=== PATIENT | male | born 1955 | race Caucasian/White ===

== ENCOUNTER 2020-01-25 15:16 | Inpatient (IN) | payer OTHER ==
[~2020-01-25 15:16] MED LIST: CIPR500T89 PO; GLIM2TAB PO; METF1000 PO; METO50TA2 PO; ONDA-1 PO; PERC7.5T12 PO; SERT-138 PO; TAMS0.4C PO; TRAZ50TA2 PO; [UNRECOGNIZED DRUG - CODE] PO
[2020-01-25 17:30] VITALS: BP 170/88
[2020-01-25] MEDS ORDERED: LISI40TA PO (17:53)
[2020-01-25] MEDS ORDERED: AMLO1TAB24 PO (17:53)
[2020-01-25] MEDS ORDERED: FURO20TA2 PO (17:53)
[2020-01-25] MEDS ORDERED: ATOR40TA75 PO (17:53)
[2020-01-25] MEDS ORDERED: METF10004 PO (17:53)
[2020-01-25] MEDS ORDERED: SPIR-10 PO (17:53)
[2020-01-25] MEDS ORDERED: ZYLO300T6 PO ×2 (17:53→18:17)
[2020-01-25] MEDS ORDERED: OMEP-221 PO (17:53)
[2020-01-25] MEDS ORDERED: AMLO1TAB25 PO (17:53)
[2020-01-25] MEDS ORDERED: SERT-138 PO (17:53)
[2020-01-25] MEDS ORDERED: ALLO10TA PO (17:55)
[2020-01-25] MEDS ORDERED: GLUCAGON INJ 1MG VIAL SC PRN (18:15)
[2020-01-25] MEDS ORDERED: DEXTROSE 50% 50 ML SYRINGE IV PRN (18:15)
[2020-01-25] MEDS ORDERED: GLUCOSE 4GM CHEW TABLET PO PRN (18:15)
[2020-01-25] MEDS ORDERED: ACETAMINOPHEN TAB 650MG DOSE (2X325MG) PO PRN (18:15)
[2020-01-25] MEDS: METOPROLOL 5 MG/5 ML VIAL IV SCH ×3 (18:15→18:25)
--- NOTE | 2020-01-25 18:25 | HPEPDOC ---
General Date of Admission Jan 25, 2020 at 17:38 Date of Service: Jan 25, 2020 Chief Complaint The patient is a 64-year-old male admitted with a reason for visit of Syncopy. Source: Patient Exam Limitations: No limitations Timing/Duration: 4-6 hours Severity: Moderate Associated Symptoms: Syncope History of Present Illness Patient is 64 years old male with past mental history of appendicitis, nephrolithiasis, chronic right bundle branch block, depression, anxiety, type 2 diabetes on metformin was transferred from [facility]. Today patient deve loped syncope. He stated that he lost his consciousness when he was doing shopping, he denied any seizure-like activities. Patient stated that around 7 he had 2 episodes of syncope similar to today. He stated that previous workup was negative. Patient was found to have atrial flutter on the EKG with heart rate 113, with prolongation of QTC to 466, magnesium 1.5, BNP 138, no leukocytosis, hemoglobin of 15, potassium 3.9, glucose 191, creatinine 0.9. Troponin negative, TSH 1.8. received magnesium replacement. Head CT scan was negative, chest x-ray negative Home Medications Scheduled Allopurinol (Allopurinol) 100 Mg Tablet, 200 MG PO QHS, (Reported) Amlodipine Besylate (Amlodipine Besylate) 10 Mg Tablet, 10 MG PO DAILY, (Reported) Amlodipine Besylate (Amlodipine Besylate) 5 Mg Tablet, 5 MG PO DAILY, (Reported) Atorvastatin Calcium (Atorvastatin Calcium) 40 Mg Tablet, 40 MG PO QHS, (Reported) Furosemide (Furosemide) 20 Mg Tablet, 20 MG PO BID, (Reported) Lisinopril (Lisinopril) 40 Mg Tablet, 40 MG PO DAILY, (Reported) Metformin HCl (Metformin HCl) 1,000 Mg Tablet, 1,000 MG PO DAILY, (Reported) Omeprazole (Omeprazole) 40 Mg Capsule.dr, 40 MG PO DAILY, (Reported) Sertraline HCl (Sertraline HCl) 100 Mg Tablet, 150 MG PO DAILY, (Reported) Spironolactone (Spironolactone) 25 Mg Tablet, 25 MG PO DAILY, (Reported) Allergies Coded Allergies: MS - Penicillins (Verified Allergy, Unknown, 01/25/20) MS - Sulfa Drugs (Verified Allergy, Unknown, 08/16/12) Past Medical History Medical History Nephrolithiasis, right bundle branch block anxiety, diabetes, diabetes mellitus type 2, gout, hypertension Surgical History Appendectomy Family History I personally reviewed family history and found NOT PERTINENT Social History * Smoker: Denies Alcohol: Denies Drugs: denies A-FIB/CHADSVASC A-FIB History Current/History of A-Fib/PAF?: No Current PO Anticoag Therapy: Yes Age/Risk Factor Scoring CHADSVASC: CHADSVASC Response (Comments) Value Age Risk Factor Age < 65 years old 0 Gender Risk Factor Male 0 Hx of HTN Yes 1 Hx of Diabetes Yes 1 Total 2 Review of Systems Constitutional: Denies: Chills, Fever Eyes: Denies: Pain, Vision change ENT: Denies: Head Aches Skin: Denies: Rash Cardiovascular: Denies: Chest Pain Gastrointestinal: Denies: Nausea, Vomiting Genitourinary: Denies: Dysuria Hematologic: Denies: Bruising Endocrine: Denies: Polydipsia Musculoskeletal: Denies: Neck Pain, Back Pain Neurological: Reports: Other Symptoms (syncope); Denies: Weakness Psych: Reports: Mood Normal Physical Examination General Exam: Positive: Alert, Cooperative Eye Exam: Positive: PERRLA ENT Exam: Positive: Atraumatic Neck Exam: Positive: Supple; Negative: JVD Chest Exam: Positive: Clear to auscultation Heart Exam: Positive: Tachycardic, Irregular Rhythm Telemetry: Positive: Atrial fibrillation Abdomen Exam: Positive: Normal bowel sounds Extremity Exam: Negative: Clubbing Skin Exam: Positive: Nl turgor and temperature Neuro Exam: Positive: Normal Gait, Strength at 5/5 X4 ext Psych Exam: Positive: Mental status NL Vital Signs Vital Signs Date Time Temp Pulse Resp B/P (MAP) Pulse Ox O2 Delivery O2 Flow Rate FiO2 01/25/20 17:30 97.8 101 22 170/88 (115) 95 Room Air Assessment/Plan Patient is 64 years old male with past mental history of appendicitis, nephrolithiasis, chronic right bundle branch block, depression, anxiety, type 2 diabetes on metformin was transferred from [facility]. Today patient developed syncope. He stated that he lost his consciousness when he was doing shopping, he denied any seizure-like activities. Patient stated that around 7 he had 2 episodes of syncope similar to today. He stated that previous workup was negative. Patient was found to have atrial flutter on the EKG with heart rate 113, with prolongation of QTC to 466, magnesium 1.5, BNP 138, no leukocytosis, hemoglobin of 15, potassium 3.9, glucose 191, creatinine 0.9. Troponin negative, TSH 1.8. received magnesium replacement. Head CT scan was negative, chest x-ray negative Problems (1) Atrial flutter Status: Acute Problem Text: Patient denies any history of atrial fibrillation in the past EKG which was done in the [facility] showed atrial flutter with QTc prolongation to 466 We'll avoid medication with QTc prolongation Echo Metoprolol by mouth Lopressor IV with parameters Appreciate/agree with managing attorney consult (2) Syncope Status: Acute Problem Text: Most likely secondary to atrial flutter Telemetry CT head negative No neurological deficits (3) Hypertension Status: Chronic Problem Text: Continue home cardioprotective medication (4) Diabetes mellitus Status: Chronic Problem Text: Diabetes diet Insulin sliding scale Plan / VTE VTE Prophylaxis Ordered?: Yes AUSTIN URBINA DO Jan 25, 2020 18:25
[2020-01-25 18:37] LABS: HEMATOCRIT 43.3 % (42.0-52.0); MEAN CORPUSCULAR HEMOGLOBIN 29.3 pg (27.0-33.0); MEAN CORPUSCULAR HGB CONC 34.6 g/dl (32.0-36.5); MEAN CORPUSCULAR VOLUME 84.6 fl (80.0-96.0); PLATELET COUNT, AUTOMATED 201 10^3/uL (150-450); RED BLOOD COUNT 5.12 10^6/uL (4.30-6.10); WHITE BLOOD COUNT 10.8 10^3/uL (4.0-10.0)
[2020-01-25] MEDS ORDERED: METOPROLOL TART 25 MG TABLET PO ONE (18:45)
[2020-01-25] MEDS ORDERED: METOPROLOL 5 MG/5 ML VIAL IV PRN (18:45)
[2020-01-25 19:09] LABS: ALBUMIN 3.7 GM/DL (3.2-5.2); ALT/SGPT 42 U/L (12-78); BILIRUBIN,TOTAL 1.1 MG/DL (0.2-1.0); BLOOD UREA NITROGEN 17 MG/DL (7-18); CARBON DIOXIDE LEVEL 24 MEQ/L (21-32); CHLORIDE LEVEL 108 MEQ/L (98-107); CREATININE FOR GFR 0.86 MG/DL (0.70-1.30); GLOMERULAR FILTRATION RATE > 60.0 (>49); GLUCOSE, FASTING 164 MG/DL (70-100); MAGNESIUM LEVEL 1.8 MG/DL (1.8-2.4); POTASSIUM SERUM 3.7 MEQ/L (3.5-5.1); SODIUM LEVEL 138 MEQ/L (136-145); TOTAL PROTEIN 6.7 GM/DL (6.4-8.2); TROPONIN I < 0.02 NG/ML (< 0.10)
[2020-01-25 20:00] VITALS: BP 144/86
[2020-01-25] MEDS: HumaLOG INSULIN (NovoLOG) PER UNIT SC SCH (21:00)
[2020-01-25] MEDS: OMEPRAZOLE 20 MG CAP PO SCH (21:54)
[2020-01-25] MEDS: APIXABAN 2.5 MG TAB (ELIQUIS) PO SCH (21:54)
[2020-01-25] MEDS: allopurinoL 100 MG TAB PO SCH (21:55)
[2020-01-25] MEDS: METOPROLOL TART 25 MG TABLET PO SCH (21:56)
[2020-01-26 00:41] VITALS: BP 134/74
[2020-01-26 04:00] VITALS: BP 120/70
[2020-01-26 04:45] LABS: HEMATOCRIT 41.9 % (42.0-52.0); HEMOGLOBIN 14.2 g/dl (13.5-17.5); MEAN CORPUSCULAR HEMOGLOBIN 29.3 pg (27.0-33.0); MEAN CORPUSCULAR HGB CONC 33.9 g/dl (32.0-36.5); MEAN CORPUSCULAR VOLUME 86.4 fl (80.0-96.0); PLATELET COUNT, AUTOMATED 207 10^3/uL (150-450); RED BLOOD COUNT 4.85 10^6/uL (4.30-6.10); WHITE BLOOD COUNT 8.9 10^3/uL (4.0-10.0)
[2020-01-26 05:22] LABS: ALBUMIN 3.4 GM/DL (3.2-5.2); ALT/SGPT 37 U/L (12-78); BILIRUBIN,TOTAL 1.5 MG/DL (0.2-1.0); BLOOD UREA NITROGEN 15 MG/DL (7-18); CALCIUM LEVEL 8.7 MG/DL (8.8-10.2); CARBON DIOXIDE LEVEL 27 MEQ/L (21-32); CHLORIDE LEVEL 108 MEQ/L (98-107); CREATININE FOR GFR 0.93 MG/DL (0.70-1.30); GLOMERULAR FILTRATION RATE > 60.0 (>49); GLUCOSE, FASTING 156 MG/DL (70-100); MAGNESIUM LEVEL 1.9 MG/DL (1.8-2.4); POTASSIUM SERUM 3.9 MEQ/L (3.5-5.1); SODIUM LEVEL 139 MEQ/L (136-145); TOTAL PROTEIN 6.7 GM/DL (6.4-8.2); TROPONIN I < 0.02 NG/ML (< 0.10)
[2020-01-26] MEDS: METOPROLOL TART 25 MG TABLET PO SCH ×3 (06:19→21:00)
[2020-01-26 07:39] VITALS: BP 124/70
[2020-01-26] MEDS: amLODIPine 10 MG TAB PO SCH (08:12)
[2020-01-26] MEDS: amLODIPine 5 MG TAB PO SCH (08:12)
[2020-01-26] MEDS: OMEPRAZOLE 20 MG CAP PO SCH ×2 (08:12→20:59)
[2020-01-26] MEDS: allopurinoL 300 MG TAB PO SCH (08:12)
[2020-01-26] MEDS: HumaLOG INSULIN (NovoLOG) PER UNIT SC SCH ×4 (08:12→20:59)
[2020-01-26] MEDS: APIXABAN 2.5 MG TAB (ELIQUIS) PO SCH ×2 (08:13→20:59)
[2020-01-26] MEDS: ATORVASTATIN 20 MG TAB PO SCH (08:13)
[2020-01-26] MEDS: SPIRONOLACTONE 25 MG TAB PO SCH (08:13)
[2020-01-26] MEDS: FUROSEMIDE 20 MG TAB PO SCH (08:13)
[2020-01-26] MEDS ORDERED: lisinopriL 40 MG TAB PO SCH (09:00)
--- NOTE | 2020-01-26 10:11 | IPNPDOC ---
Text Note Date of Service The patient was seen on 01/26/20. NOTE Subjective: No any acute events overnight. Patient denies any chest pain, pal pitations, diarrhea or dysuria Objective: GENERAL APPEARANCE: NAD HEENT: no scleral icterus, no JVD, EOMI CARDIOVASCULAR: S1S2, regular LUNGS: CTA ABDOMEN: soft & not tender w palpitation MUSCULOSKELETAL: no cyanosis, no swelling INTEGUMENT: no generalized palor NEUROLOGICAL: cranial nerve function from 2-12 intact intact, follows commands, speech not dysarthric Patient is 64 years old male with past history of appendicitis, nephrolithiasis, chronic right bundle branch block, depression, anxiety, type 2 diabetes on metformin was transferred from [facility]. Today patient developed syncope. He stated that he lost his consciousness when he was doing shopping, he denied any seizure-like activities. Patient stated that around 7 he had 2 episodes of syncope similar to today. He stated that previous workup was negative. Patient was found to have atrial flutter on the EKG with heart rate 113, with prolongation of QTC to 466. (1) Atrial flutter Patient denies any history of atrial fibrillation in the past EKG which was done in the [facility] showed atrial flutter with QTc prolongation to 466 We'll avoid medication with QTc prolongation Await Echo Metoprolol by mouth Lopressor IV with parameters Appreciate/agree with boilermaker welder consult Overnight patient had sinus rhythm (2) Syncope Most likely secondary to atrial flutter Telemetry CT head negative No neurological deficits (3) Hypertension Continue home cardioprotective medication (4) Diabetes mellitus Diabetes diet Insulin sliding scale VS,Fishbone, I+O VS, Fishbone, I+O Laboratory Tests 01/25/20 18:28 01/26/20 04:13 Vital Signs Date Time Temp Pulse Resp B/P (MAP) Pulse Ox O2 Delivery O2 Flow Rate FiO2 01/26/20 08:12 64 124/70 01/26/20 07:39 97.9 18 94 Room Air I&O- Last 24 Hours up to 6 AM 01/26/20 06:00 Intake Total 0 ml Output Total 325 ml Balance -325 ml AUSTIN URBINA DO Jan 26, 2020 10:11
[2020-01-26 13:45] VITALS: BP 120/70
[2020-01-26] MEDS: allopurinoL 100 MG TAB PO SCH (20:59)
[2020-01-26 22:00] VITALS: BP 138/76
[2020-01-27] MEDS: METOPROLOL TART 25 MG TABLET PO SCH (05:53)
[2020-01-27 06:00] VITALS: BP 140/77
[2020-01-27] MEDS: HumaLOG INSULIN (NovoLOG) PER UNIT SC SCH ×2 (07:30→12:00)
[2020-01-27] MEDS: OMEPRAZOLE 20 MG CAP PO SCH (08:25)
[2020-01-27] MEDS: amLODIPine 10 MG TAB PO SCH (08:25)
[2020-01-27 08:26] VITALS: BP 136/71
[2020-01-27] MEDS: APIXABAN 2.5 MG TAB (ELIQUIS) PO SCH (08:26)
[2020-01-27] MEDS: SPIRONOLACTONE 25 MG TAB PO SCH (08:26)
[2020-01-27] MEDS: ATORVASTATIN 20 MG TAB PO SCH (08:26)
[2020-01-27] MEDS: FUROSEMIDE 20 MG TAB PO SCH (08:26)
[2020-01-27] MEDS: amLODIPine 5 MG TAB PO SCH (08:26)
[2020-01-27] MEDS: allopurinoL 300 MG TAB PO SCH (08:26)
[2020-01-27] MEDS ORDERED: FLUBLOK(EGG FREE)(QUAD)INFLUENZA VACC 0.5ML SYRINGE 18YRS & OLDER IM ONE (09:00)
[2020-01-27] MEDS ORDERED: METO1TAB7 PO (10:10)
[2020-01-27] MEDS ORDERED: ELIQ2.5T PO (10:10)
--- NOTE | 2020-01-27 17:03 | DS.PDOC ---
Discharge Summary General Date of Admission Jan 25, 2020 at 17:38 Date of Discharge 01/27/20 Discharge Summary PROCEDURES PERFORMED DURING STAY: [None]. ADMITTING DIAGNOSES: Atrial flutter Syncope Hypertension Diabetes mellitus DISCHARGE DIAGNOSES: Atrial flutter Syncope Hypertension Diabetes mellitus COMPLICATIONS/CHIEF COMPLAINT: Syncopy. HISTORY OF PRESENT ILLNESS:Patient is 64 years old male with past history of appendicitis, nephrolithiasis, chronic right bundle branch block, depression, anxiety, type 2 diabetes on metformin was transferred from [facility]. Today patient developed syncope. He stated that he lost his consciousness when he was doing shopping, he denied any seizure-like activities. Patient stated that around 7 he had 2 episodes of syncope similar to today. He stated that previous workup was negative. Patient was found to have atrial flutter on the EKG with heart rate 113, with prolongation of QTC to 466. HOSPITAL COURSE: During hospital stay following issue addressed (1) Atrial flutter Patient denies any history of atrial fibrillation in the past EKG which was done in the [facility] showed atrial flutter with QTc prolongation to 466 Echo report pending Metoprolol by mouth Patient was converted to normal sinus rate (2) Syncope Most likely secondary to atrial flutter Telemetry CT head negative No neurological deficits (3) Hypertension Continue home cardioprotective medication (4) Diabetes mellitus Diabetes diet Insulin sliding scale DISCHARGE MEDICATIONS: Please see below. ALLERGIES: Please see below. PHYSICAL EXAMINATION ON DISCHARGE: VITAL SIGNS: Please see below. Objective: GENERAL APPEARANCE: NAD HEENT: no scleral icterus, no JVD, EOMI CARDIOVASCULAR: S1S2, regular LUNGS: CTA ABDOMEN: soft & not tender w palpitation MUSCULOSKELETAL: no cyanosis, no swelling INTEGUMENT: no generalized palor NEUROLOGICAL: cranial nerve function from 2-12 intact intact, follows commands, speech not dysarthric LABORATORY DATA: Please see below. PROGNOSIS: Fair ACTIVITY: [As tolerated]. DIET: Cardiac DISPOSITION: 01 Home, Self-Care. ITEMS TO FOLLOWUP ON ON OUTPATIENT: Follow-up with manager strategic in the outpatient settings in 2-4 days DISCHARGE CONDITION: [Stable]. TIME SPENT ON DISCHARGE: Greater than 40 minutes. Vital Signs/I&Os Vital Signs Date Time Temp Pulse Resp B/P (MAP) Pulse Ox O2 Delivery O2 Flow Rate FiO2 01/27/20 08:26 72 136/71 01/27/20 06:00 98.4 18 94 Room Air I&O- Last 24 Hours up to 6 AM 01/27/20 06:00 Intake Total 200 ml Output Total 2025 ml Balance -1825 ml Laboratory Data Labs 24H Laboratory Tests 2 01/26/20 20:36: Bedside Glucose (Misc Panel) 147H 01/27/20 05:33: Bedside Glucose (Misc Panel) 163H 01/27/20 11:33: Bedside Glucose (Misc Panel) 161H FSBS Laboratory Tests Test 01/26/20 20:36 01/27/20 05:33 01/27/20 11:33 Range/Units Bedside Glucose (Misc Panel) 147 163 161 80-115 MG/DL Discharge Medications Scheduled Allopurinol (Allopurinol) 100 Mg Tablet, 200 MG PO QHS, (Reported) Allopurinol (Zyloprim) 300 Mg Tablet, 300 MG PO DAILY, (Reported) Amlodipine Besylate (Amlodipine Besylate) 10 Mg Tablet, 10 MG PO DAILY, (Reported) WITH 5MG FOR A TOTAL OF 15MG Amlodipine Besylate (Amlodipine Besylate) 5 Mg Tablet, 5 MG PO DAILY, (Reported) WITH 10MG FOR A TOTAL OF 15MG Apixaban (Eliquis) 2.5 Mg Tablet, 2.5 MG PO BID Atorvastatin Calcium (Atorvastatin Calcium) 40 Mg Tablet, 40 MG PO DAILY, (Reported) Furosemide (Furosemide) 20 Mg Tablet, 20 MG PO DAILY, (Reported) Lisinopril (Lisinopril) 40 Mg Tablet, 40 MG PO DAILY, (Reported) Metformin HCl (Metformin HCl) 1,000 Mg Tablet, 1,000 MG PO QHS, (Reported) Metoprolol Succinate (Metoprolol Succinate) 50 Mg Tab.er.24h, 50 MG PO DAILY Omeprazole (Omeprazole) 40 Mg Capsule.dr, 40 MG PO DAILY, (Reported) Spironolactone (Spironolactone) 25 Mg Tablet, 25 MG PO DAILY, (Reported) Allergies Coded Allergies: Penicillins (Verified Allergy, Unknown, 01/25/20) Sulfa (Sulfonamide Antibiotics) (Verified Allergy, Unknown, 01/25/20) AUSTIN URBINA DO Jan 27, 2020 17:03
--- NOTE | 2020-01-28 13:55 | ECHO ---
DATE OF PROCEDURE: 01/27/2020 Age: Gender: Male Height: 185 cm Weight: 133 kg REFERRING PHYSICIAN: Jamshid Card DO INDICATION: Syncope. MEASUREMENTS: 2D Measurements: Intraventricular septum 1.12 cm Posterior wall 1.05 cm Left ventricle diastole 6.0 cm Aortic root 3.4 cm Left atrium 4.1 cm Left atrial volume index 22 cm Inferior vena cava 1.9 cm Doppler Measurements: No aortic stenosis. No aortic regurgitation. Aortic valve velocity 127 cm/s LVOT velocity 118 cm/s LVOT VTI 24.0 cm No mitral regurgitation No mitral stenosis Mitral E velocity 44.7 cm/s Mitral A velocity 54.0 cm/s Mitral deceleration 183 msec No tricuspid regurgitation Mild pulmonic regurgitation Pulmonary artery systolic pressure 24 mmHg MITRAL ANNULAR TISSUE DOPPLER E prime lateral 8.0 cm/s, E prime septal 10.5 cm/s DESCRIPTION: Rhythm was sinus. This was a moderately technically difficult echocardiogram. This was a 2D, M-mode, color flow Doppler, and pulsed wave Doppler examination including mitral annular tissue Doppler. CONCLUSIONS: 1. Left ventricle probably at the upper limits of normal in size for height and weight at end-diastole. Normal LV wall thickness. Normal regional LV wall motion and wall thickening. Normal LV systolic function with LVEF 70% by visual estimate. Normal LV diastolic function for age. 2. Mild mitral annular calcification. No mitral regurgitation. 3. No pericardial effusion. 4. Otherwise normal appearing echocardiogram Doppler findings. MTDD
--- NOTE | 2020-01-29 11:16 | ECGEPIP ---
[facility] Test Date: 2020-01-25 Pat Name: BOOGIE LONGORIA Department: Room: [place] [address] Gender: Male Plan Manager: HORACE : [id number] Requested By: AUSTIN URBINA Order Number: [id number] Reading MD: Hector Fischer Measurements Intervals Rena Lara Rate: 95 P: 13 NE: 164 QRS: 88 QRSD: 150 T: -38 QT: 369 QTc: 466 Interpretive Statements SINUS RHYTHM RIGHT AXIS RBBB CLINICAL CORRELATION REQUIRED ST/T ABNORMALITIES SEE SCANNED DOWNTIME RECORD
[2021-01-24] MEDS ORDERED: lisinopriL 40 MG TAB PO SCH (19:00)
== END 2020-01-27 13:23 | disposition home or self-care (01) | DRG 201 ==
LOC: M PCU 17:38 → M MSPAV 01-26 13:37
PROVIDERS: ADMIT General Practice; ATTEND Internal Medicine
DX: I48.92 Unspecified atrial flutter (principal); I10 Essential (primary) hypertension; R55 Syncope and collapse; F32.9 Major depressive disorder, single episode, unspecified; F41.9 Anxiety disorder, unspecified; E11.9 Type 2 diabetes mellitus without complications; I45.10 Unspecified right bundle-branch block; Z79.84 Long term (current) use of oral hypoglycemic drugs; Z79.899 Other long term (current) drug therapy; Z88.0 Allergy status to penicillin; Z88.2 Allergy status to sulfonamides

== ENCOUNTER → 2022-06-17 | Outpatient (CLI) | payer MEDICARE, OTHER ==
[~2022-06-17] MED LIST changes: +ALLO10TA PO; +AMLO1TAB24 PO; +AMLO1TAB25 PO; +ATOR40TA75 PO; +ELIQ2.5T PO; +FURO20TA2 PO; +LIDOCAINE 1% MDV 20ML VIAL As Ordered ONE; +LISI40TA4 PO; +METF10004 PO; +METO1TAB7 PO; +OMEP40CA5 PO; +SPIR-10 PO; +ZYLO300T6 PO
[2022-06-17 10:10] VITALS: BP 163/74
== END ==
LOC: M IRPRO 09:04
DX: A49.02 Methicillin resistant Staphylococcus aureus infection, unspecified site (principal)
CPT/HCPCS: 36571; 76937; C1751

== ENCOUNTER 2024-02-02 08:12 | Day surgery (SDC) | payer MEDICARE, OTHER ==
[~2024-02-02] VITALS: Ht 185.4 cm; Wt 134.8 kg
[~2024-02-02 08:12] MED LIST changes: +DILT180C70 PO; +ELIQ5TAB4 PO; +FERR325T3 PO; -LIDOCAINE 1% MDV 20ML VIAL As Ordered ONE; +MAGN200T PO; +MECL-86 PO; +MIDAZOLAM INJ 2MG/2ML VIAL As Ordered ONE; +ROSU20TA61 PO; +SERT25TA21 PO; +fentaNYL 100 MCG/2 ML INJECTION As Ordered ONE
[2024-02-02] MEDS: LIDOCAINE 3.5 % 1ML OPHTH TOPICAL GEL OU ONE (09:08)
[2024-02-02] MEDS: ATROPINE SULFATE 1% OPHTH SOLN 2ML BTL OD SCH (09:08)
[2024-02-02] MEDS: OFLOXACIN 0.3 % (OCUFLOX) OPTH SOL 5ML OD ONE (09:08)
[2024-02-02] MEDS: TROPICAMIDE 1% OPHTH SOLN 15ML OD SCH (09:08)
[2024-02-02] MEDS: PHENYLEPHRINE 2.5% OPHTH SOL 2ML OD SCH (09:08)
[2024-02-02] MEDS: PHENYLEPHRINE 10% OPHTH SOL 5ML OD PRN (09:08)
[2024-02-02] MEDS: LIDOCAINE 1% SDV 5ML VIAL As Ordered ONE (11:56)
[2024-02-02] MEDS: BSS IRRIG/VANCO(10MG)/TOBRA(5MG)/EPINEPH(1:1000-0.5CC)500ML BAG-ORONLY As Ordered ONE (11:56)
[2024-02-02] MEDS: MOXIFLOXACIN 0.6MG/0.4ML INTRAOCULAR SYRINGE As Ordered ONE (11:56)
[2024-02-02 12:02] VITALS: BP 127/69; TEMP 97.1; O2SAT 96
== END 2024-02-02 13:00 | disposition home or self-care (01) ==
LOC: M SDC 08:12
PROVIDERS: ATTEND Ophthalmology
DX: H25.11 Age-related nuclear cataract, right eye (principal); I48.91 Unspecified atrial fibrillation; G47.33 Obstructive sleep apnea (adult) (pediatric); Z95.0 Presence of cardiac pacemaker; Z88.0 Allergy status to penicillin; Z88.2 Allergy status to sulfonamides; Z79.899 Other long term (current) drug therapy
CPT/HCPCS: 66984; J2250; J3010; V2632

== ENCOUNTER 2024-05-01 06:18 | Day surgery (SDC) | payer MEDICAID, MEDICARE ==
[~2024-05-01] VITALS: Ht 185.4 cm; Wt 138.3 kg
[~2024-05-01 06:18] MED LIST changes: -MIDAZOLAM INJ 2MG/2ML VIAL As Ordered ONE; +PHENYLEPHRINE 10% OPHTH SOL 5ML OS PRN; -ROSU20TA61 PO; +ROSU20TA86 PO; -fentaNYL 100 MCG/2 ML INJECTION As Ordered ONE
[2024-05-01] MEDS ORDERED: fentaNYL 100 MCG/2 ML INJECTION As Ordered ONE (06:57)
[2024-05-01] MEDS ORDERED: MIDAZOLAM INJ 2MG/2ML VIAL As Ordered ONE (06:57)
[2024-05-01] MEDS: CYCLOPENTOLATE 1% OPHTH SOLN 2ML BTL OS SCH (07:05)
[2024-05-01] MEDS: PHENYLEPHRINE 2.5% OPHTH SOL 2ML OS SCH (07:06)
[2024-05-01] MEDS: TROPICAMIDE 1% OPHTH SOLN 15ML OS SCH (07:06)
[2024-05-01] MEDS: OFLOXACIN 0.3 % (OCUFLOX) OPTH SOL 5ML OS ONE (07:06)
[2024-05-01] MEDS: LIDOCAINE 3.5 % 1ML OPHTH TOPICAL GEL OU ONE (07:06)
[2024-05-01] MEDS: BSS IRRIG/VANCO(10MG)/TOBRA(5MG)/EPINEPH(1:1000-0.5CC)500ML BAG-ORONLY As Ordered ONE (08:20)
[2024-05-01] MEDS: LIDOCAINE 1% SDV 5ML VIAL As Ordered ONE (08:20)
[2024-05-01] MEDS: CEFUROXIME 1MG/0.1ML INTRACAMERAL INJ As Ordered ONE (08:20)
[2024-05-01] MEDS: MOXIFLOXACIN 0.6MG/0.4ML INTRAOCULAR SYRINGE As Ordered ONE (08:20)
[2024-05-01 08:31] VITALS: BP 138/78; TEMP 97.9; O2SAT 97
== END 2024-05-01 09:16 | disposition home or self-care (01) ==
LOC: M SDC 06:18
PROVIDERS: ATTEND Ophthalmology
DX: H25.9 Unspecified age-related cataract (principal); I48.91 Unspecified atrial fibrillation; E11.9 Type 2 diabetes mellitus without complications; G47.30 Sleep apnea, unspecified; Z95.0 Presence of cardiac pacemaker; Z88.0 Allergy status to penicillin; Z88.2 Allergy status to sulfonamides; Z79.899 Other long term (current) drug therapy
CPT/HCPCS: 66984; J2250; J3010; V2632

== ENCOUNTER 2024-11-06 16:43 | Inpatient (IN) | payer MEDICARE, OTHER ==
[~2024-11-06] VITALS: Ht 185.4 cm; Wt 124.0 kg
[~2024-11-06 16:43] MED LIST changes: +LISI40TA10 PO; -LISI40TA4 PO; -PHENYLEPHRINE 10% OPHTH SOL 5ML OS PRN
[2024-11-06 17:31] LABS: BASO # 0.0 10^3/uL (0.0-0.2); BASO % 0.6 % (0.0-1.0); EOS # 0.1 10^3/uL (0.0-0.5); EOS % 2.1 % (0.0-3.0); LYMPH # 0.9 10^3/uL (1.5-5.0); LYMPH % 14.2 % (24.0-44.0); MONO # 0.8 10^3/uL (0.0-0.8); MONO % 12.1 % (2.0-8.0); NEUTROPHILS # 4.4 10^3/uL (1.5-8.5); NEUTROPHILS % 70.7 % (36.0-66.0); PLATELET COUNT, AUTOMATED 156 10^3/uL (150-450)
[2024-11-06 17:46] LABS: CK-MB VALUE MASS < 1.0 NG/ML (<3.6)
[2024-11-06 17:49] LABS: INR 1.13
[2024-11-06 17:50] LABS: FREE T4 0.86 NG/DL (0.89-1.76)
[2024-11-06 18:15] LABS: CALCIUM LEVEL 7.9 MG/DL (8.3-10.6); CARBON DIOXIDE LEVEL 20 MMOL/L (20-31); CHLORIDE LEVEL 112 MMOL/L (98-107); CPK CREATINE PHOSPHOKINASE 48 U/L (46-171); CREATININE FOR GFR 1.18 MG/DL (0.70-1.30); GLOMERULAR FILTRATION RATE 67.2 (>49); MAGNESIUM LEVEL 1.6 MG/DL (1.8-2.4); POTASSIUM SERUM 4.4 MMOL/L (3.5-5.1); SODIUM LEVEL 144 MMOL/L (136-145)
[2024-11-06 19:03] LABS: CK-MB VALUE MASS < 1.0 NG/ML (<3.6)
[2024-11-06] MEDS: MAGNESIUM OXIDE 400 MG TAB PO ONE (19:04)
[2024-11-06 19:16] LABS: CPK CREATINE PHOSPHOKINASE 57 U/L (46-171)
[2024-11-06] MEDS ORDERED: MAGN400T2 PO (20:36)
[2024-11-06] MEDS ORDERED: METO50TA7 PO (20:36)
[2024-11-06] MEDS ORDERED: HOME MED LIST COMPLETE! XX SCH (20:40)
[2024-11-06] MEDS ORDERED: APIXABAN 5 MG TAB PO SCH (21:00)
[2024-11-06] MEDS ORDERED: MOM 30 ML SUSPENSION UDC PO PRN (21:30)
[2024-11-06] MEDS ORDERED: MAALOX 30 ML SUSP *UDC PO PRN (21:30)
[2024-11-06] MEDS ORDERED: ISOVUE-370 76% 100 ML VIAL As Ordered ONE (23:08)
[2024-11-07] VITALS (8 sets, daily range): BP systolic 81–135; BP diastolic 47–71; TEMP 96.6–97.8; O2SAT 94–98
[2024-11-07] MEDS: dilTIAZem 180 MG **CD** CAPSULE PO SCH (00:19)
[2024-11-07] MEDS: METOPROLOL TART 50 MG TAB PO SCH (00:20)
[2024-11-07] MEDS: NS 500 ML IV ONE (00:20)
[2024-11-07] MEDS ORDERED: GLUCOSE 4 GM CHEW PO PRN (00:50)
[2024-11-07] MEDS ORDERED: DEXTROSE 50% 50 ML SYRINGE IV PRN (00:50)
[2024-11-07] MEDS ORDERED: GLUCAGON INJ 1 MG VIAL SC PRN (00:50)
[2024-11-07] MEDS: FUROSEMIDE 40 MG/4 ML VIAL IV ONE (01:27)
[2024-11-07 03:30] LABS: KETONE, URINE AUTO RFX NEGATIVE (NEGATIVE); LEUKOCYTE ESTERASE UR AUTO RFX NEGATIVE (NEGATIVE); MUCUS, URINE RFX SMALL (NEGATIVE); NITRITE, URINE AUTO RFX NEGATIVE (NEGATIVE); RBC, URINE AUTO RFX 1 /HPF (0-3); SQUAM EPITHELIAL CELL UR AURFX 0 /HPF (0-6); WBC, URINE AUTO RFX 0 /HPF (0-3)
[2024-11-07 05:55] LABS: ABG BASE EXCESS 0.6 (-2.0-2.0); ABG HCO3 24.9 MMOL/L (22.0-26.0); ABG O2 SATURATION 94.5 % (95.0-99.0); ABG PARTIAL PRESSURE CO2 38.8 mmHg (35.0-45.0); ABG PARTIAL PRESSURE O2 72.2 mmHg (75.0-100.0); ABG STANDARD HCO3 24.9 MMOL/L. (22.0-26.0); ABG TOTAL CO2 26.1 MMOL/L (23.0-31.0); ABG pH (ARTERIAL) 7.425 UNITS (7.350-7.450)
[2024-11-07 06:34] LABS: PLATELET COUNT, AUTOMATED 140 10^3/uL (150-450)
[2024-11-07 06:46] LABS: ALT/SGPT 26.0 U/L (7.0-40); AST/SGOT 28.0 U/L (<34); CALCIUM LEVEL 7.9 MG/DL (8.3-10.6); CARBON DIOXIDE LEVEL 29.0 MMOL/L (20-31); CHLORIDE LEVEL 108.0 MMOL/L (98-107); CREATININE FOR GFR 1.08 MG/DL (0.70-1.30); GLOMERULAR FILTRATION RATE 74.8 (>49); MAGNESIUM LEVEL 1.6 MG/DL (1.8-2.4); POTASSIUM SERUM 4.1 MMOL/L (3.5-5.1); SODIUM LEVEL 145.0 MMOL/L (136-145)
[2024-11-07] MEDS ORDERED: FUROSEMIDE 20 MG/2 ML VIAL IV SCH (09:00)
[2024-11-07] MEDS: ROSUVASTATIN 10 MG TAB PO SCH (09:07)
[2024-11-07] MEDS: OMEPRAZOLE 20MG CAP PO SCH (09:07)
[2024-11-07] MEDS: MECLIZINE 25 MG TABLET PO SCH (09:07)
[2024-11-07] MEDS: MAGNESIUM OXIDE 400 MG TAB PO SCH (09:07)
[2024-11-07] MEDS: FUROSEMIDE 20 MG/2 ML VIAL IV SCH (09:08)
[2024-11-07] MEDS: INSULIN LISPRO (NovoLOG) PER UNIT SC SCH ×2 (09:10→20:21)
[2024-11-07] MEDS: MAG SULF 1GM/100ML (MAG RUN) 1 GM in IV 1 EA IV ONE (14:48)
[2024-11-07] MEDS: dilTIAZem 120 MG **CD** CAPSULE PO SCH (20:20)
[2024-11-07] MEDS: METOPROLOL TART 25 MG TABLET PO SCH (20:21)
[2024-11-07] MEDS: SERTRALINE HCL 25 MG TABLET PO SCH (21:53)
[2024-11-08] VITALS (9 sets, daily range): BP systolic 85–129; BP diastolic 54–67; TEMP 96.8–97.9; O2SAT 94–99
[2024-11-08 08:00] LABS: BASO # 0.0 10^3/uL (0.0-0.2); BASO % 0.6 % (0.0-1.0); EOS # 0.3 10^3/uL (0.0-0.5); EOS % 6.8 % (0.0-3.0); LYMPH # 1.3 10^3/uL (1.5-5.0); LYMPH % 26.6 % (24.0-44.0); MONO # 0.7 10^3/uL (0.0-0.8); MONO % 13.5 % (2.0-8.0); NEUTROPHILS # 2.6 10^3/uL (1.5-8.5); NEUTROPHILS % 52.5 % (36.0-66.0); PLATELET COUNT, AUTOMATED 134 10^3/uL (150-450)
[2024-11-08 08:31] LABS: CALCIUM LEVEL 7.3 MG/DL (8.3-10.6); CARBON DIOXIDE LEVEL 30.0 MMOL/L (20-31); CHLORIDE LEVEL 106.0 MMOL/L (98-107); CREATININE FOR GFR 1.02 MG/DL (0.70-1.30); GLOMERULAR FILTRATION RATE 80.1 (>49); POTASSIUM SERUM 4.0 MMOL/L (3.5-5.1); SODIUM LEVEL 145.0 MMOL/L (136-145)
[2024-11-08] MEDS: FUROSEMIDE 40 MG/4 ML VIAL IV SCH (09:22)
[2024-11-08] MEDS: PREVNAR-20 VACCINE 0.5ML SYRINGE IM.IMMUN ONE (12:39)
[2024-11-09] VITALS (9 sets, daily range): BP systolic 79–138; BP diastolic 47–70; TEMP 96.9–99; O2SAT 92–99
[2024-11-09 06:21] LABS: BASO # 0.0 10^3/uL (0.0-0.2); BASO % 0.7 % (0.0-1.0); EOS # 0.3 10^3/uL (0.0-0.5); EOS % 6.2 % (0.0-3.0); LYMPH # 1.0 10^3/uL (1.5-5.0); LYMPH % 19.1 % (24.0-44.0); MONO # 0.8 10^3/uL (0.0-0.8); MONO % 15.3 % (2.0-8.0); NEUTROPHILS # 3.1 10^3/uL (1.5-8.5); NEUTROPHILS % 58.5 % (36.0-66.0); PLATELET COUNT, AUTOMATED 134 10^3/uL (150-450)
[2024-11-09 06:42] LABS: CALCIUM LEVEL 7.2 MG/DL (8.3-10.6); CARBON DIOXIDE LEVEL 30 MMOL/L (20-31); CHLORIDE LEVEL 105 MMOL/L (98-107); CREATININE FOR GFR 0.90 MG/DL (0.70-1.30); GLOMERULAR FILTRATION RATE > 90.0 (>49); POTASSIUM SERUM 4.1 MMOL/L (3.5-5.1); SODIUM LEVEL 144 MMOL/L (136-145)
[2024-11-09 08:11] LABS: MAGNESIUM LEVEL 1.5 MG/DL (1.8-2.4)
[2024-11-09] MEDS: FERROUS SULFATE 325 MG TAB PO SCH (09:15)
[2024-11-10 03:54] VITALS: BP_SYST 109; BP_SYST 114; BP_SYST 118; BP_DIAS 57; BP_DIAS 62; BP_DIAS 65
[2024-11-10 04:02] VITALS: BP 118/62; TEMP 98.6; O2SAT 94
[2024-11-10 06:02] LABS: BASO # 0.0 10^3/uL (0.0-0.2); BASO % 0.7 % (0.0-1.0); EOS # 0.2 10^3/uL (0.0-0.5); EOS % 4.9 % (0.0-3.0); LYMPH # 0.7 10^3/uL (1.5-5.0); LYMPH % 15.5 % (24.0-44.0); MONO # 0.7 10^3/uL (0.0-0.8); MONO % 15.5 % (2.0-8.0); NEUTROPHILS # 2.7 10^3/uL (1.5-8.5); NEUTROPHILS % 63.2 % (36.0-66.0); PLATELET COUNT, AUTOMATED 132 10^3/uL (150-450)
[2024-11-10 06:25] LABS: CALCIUM LEVEL 7.4 MG/DL (8.3-10.6); CARBON DIOXIDE LEVEL 28 MMOL/L (20-31); CHLORIDE LEVEL 109 MMOL/L (98-107); CREATININE FOR GFR 0.92 MG/DL (0.70-1.30); GLOMERULAR FILTRATION RATE > 90.0 (>49); POTASSIUM SERUM 4.0 MMOL/L (3.5-5.1); SODIUM LEVEL 146 MMOL/L (136-145)
[2024-11-10 08:05] VITALS: BP 122/66; TEMP 98.6; O2SAT 97
[2024-11-10] MEDS: FUROSEMIDE 40 MG TAB PO SCH (08:34)
[2024-11-10] MEDS: MAGNESIUM OXIDE 400 MG TAB PO SCH (08:34)
[2024-11-10 12:21] VITALS: BP 106/58; TEMP 97.5; O2SAT 96
[2024-11-10 16:00] VITALS: BP 111/57; TEMP 97; O2SAT 95
[2024-11-10 19:41] VITALS: BP 116/57; TEMP 96.9; O2SAT 94
[2024-11-11 00:14] VITALS: BP 117/65; TEMP 98.3; O2SAT 96
[2024-11-11 04:28] VITALS: BP 121/61; TEMP 96.9; O2SAT 91
[2024-11-11 06:25] LABS: BASO # 0.0 10^3/uL (0.0-0.2); BASO % 0.8 % (0.0-1.0); EOS # 0.3 10^3/uL (0.0-0.5); EOS % 7.0 % (0.0-3.0); LYMPH # 1.0 10^3/uL (1.5-5.0); LYMPH % 22.1 % (24.0-44.0); MONO # 0.8 10^3/uL (0.0-0.8); MONO % 16.8 % (2.0-8.0); NEUTROPHILS # 2.5 10^3/uL (1.5-8.5); NEUTROPHILS % 53.1 % (36.0-66.0); PLATELET COUNT, AUTOMATED 141 10^3/uL (150-450)
[2024-11-11 06:40] LABS: CALCIUM LEVEL 7.7 MG/DL (8.3-10.6); CARBON DIOXIDE LEVEL 28 MMOL/L (20-31); CHLORIDE LEVEL 107 MMOL/L (98-107); CREATININE FOR GFR 0.88 MG/DL (0.70-1.30); GLOMERULAR FILTRATION RATE > 90.0 (>49); POTASSIUM SERUM 4.2 MMOL/L (3.5-5.1); SODIUM LEVEL 145 MMOL/L (136-145)
[2024-11-11 07:27] VITALS: BP 126/73; TEMP 98.9; O2SAT 97
[2024-11-11 12:18] VITALS: BP 111/57; TEMP 97; O2SAT 93
[2024-11-11 16:27] VITALS: BP 116/58; TEMP 98.1; O2SAT 95
[2024-11-11 20:05] VITALS: BP 129/67; TEMP 97.1; O2SAT 99
[2024-11-12] VITALS (9 sets, daily range): BP systolic 96–129; BP diastolic 53–63; TEMP 98.7–102.4; O2SAT 90–97
[2024-11-12] MEDS: ACETAMINOPHEN 325 MG TAB PO PRN (00:25)
[2024-11-12 08:07] LABS: BASO # 0.0 10^3/uL (0.0-0.2); BASO % 0.7 % (0.0-1.0); EOS # 0.0 10^3/uL (0.0-0.5); EOS % 0.5 % (0.0-3.0); LYMPH # 0.3 10^3/uL (1.5-5.0); LYMPH % 7.2 % (24.0-44.0); MONO # 0.5 10^3/uL (0.0-0.8); MONO % 12.2 % (2.0-8.0); NEUTROPHILS # 3.3 10^3/uL (1.5-8.5); NEUTROPHILS % 78.9 % (36.0-66.0); PLATELET COUNT, AUTOMATED 123 10^3/uL (150-450)
[2024-11-12 08:40] LABS: CALCIUM LEVEL 7.5 MG/DL (8.3-10.6); CARBON DIOXIDE LEVEL 28.0 MMOL/L (20-31); CHLORIDE LEVEL 105.0 MMOL/L (98-107); CREATININE FOR GFR 0.97 MG/DL (0.70-1.30); GLOMERULAR FILTRATION RATE 85.0 (>49); MAGNESIUM LEVEL 1.5 MG/DL (1.8-2.4); POTASSIUM SERUM 4.5 MMOL/L (3.5-5.1); SODIUM LEVEL 143.0 MMOL/L (136-145)
[2024-11-12] MEDS: MAG SULF 1GM/100ML (MAG RUN) 1 GM in IV 1 EA IV ONE (09:09)
[2024-11-12] MEDS: ONDANSETRON 4MG 2ML VIAL IV PRN (10:36)
[2024-11-12 16:10] LABS: AMORPHOUS SEDIMENT MODERATE (NEGATIVE); APPEARANCE, URINE CLOUDY (CLEAR); BACTERIA, URINE AUTO NEGATIVE (NEGATIVE); BILIRUBIN, URINE AUTO NEGATIVE (NEGATIVE); BLOOD, URINE BLOOD NEGATIVE (NEGATIVE); GLUCOSE, URINE (UA) AUTO NEGATIVE (NEGATIVE); KETONE, URINE AUTO NEGATIVE (NEGATIVE); LEUKOCYTE ESTERASE, URINE AUTO NEGATIVE (NEGATIVE); NITRITE, URINE AUTO NEGATIVE (NEGATIVE); PROTEIN, URINE AUTO 1+ mg/dL (NEGATIVE); RBC, URINE AUTO 1 /HPF (0-3); SPECIFIC GRAVITY URINE AUTO 1.019 (1.002-1.035); SQUAMOUS EPITHELIAL CELL UR AU 0 /HPF (0-6); UROBILINOGEN, URINE AUTO 2.0 mg/dL (0.0-2.0); WBC, URINE AUTO 0 /HPF (0-3)
[2024-11-13 03:36] VITALS: BP 107/59; TEMP 98.4; O2SAT 94
[2024-11-13 06:47] LABS: BASO # 0.0 10^3/uL (0.0-0.2); BASO % 0.9 % (0.0-1.0); EOS # 0.0 10^3/uL (0.0-0.5); EOS % 0.0 % (0.0-3.0); LYMPH # 0.6 10^3/uL (1.5-5.0); LYMPH % 19.6 % (24.0-44.0); MONO # 0.5 10^3/uL (0.0-0.8); MONO % 14.6 % (2.0-8.0); NEUTROPHILS # 2.0 10^3/uL (1.5-8.5); NEUTROPHILS % 64.3 % (36.0-66.0); PLATELET COUNT, AUTOMATED 108 10^3/uL (150-450)
[2024-11-13 07:09] LABS: CALCIUM LEVEL 7.8 MG/DL (8.3-10.6); CARBON DIOXIDE LEVEL 25.0 MMOL/L (20-31); CHLORIDE LEVEL 105.0 MMOL/L (98-107); CREATININE FOR GFR 0.93 MG/DL (0.70-1.30); GLOMERULAR FILTRATION RATE 89.4 (>49); POTASSIUM SERUM 4.5 MMOL/L (3.5-5.1); SODIUM LEVEL 140.0 MMOL/L (136-145)
[2024-11-13 08:21] VITALS: BP 107/61; TEMP 98.1; O2SAT 93
[2024-11-13 11:39] VITALS: BP 110/60; TEMP 97.2; O2SAT 97
[2024-11-13 16:04] VITALS: BP 105/57; TEMP 98; O2SAT 93
[2024-11-13 20:19] VITALS: BP 111/66; TEMP 97; O2SAT 95
[2024-11-13 23:18] VITALS: BP 121/72; TEMP 97.4; O2SAT 97
[2024-11-14 03:36] VITALS: BP 115/66; TEMP 97.7; O2SAT 94
[2024-11-14 06:29] LABS: BASO # 0.0 10^3/uL (0.0-0.2); BASO % 0.7 % (0.0-1.0); EOS # 0.2 10^3/uL (0.0-0.5); EOS % 3.7 % (0.0-3.0); LYMPH # 1.0 10^3/uL (1.5-5.0); LYMPH % 23.6 % (24.0-44.0); MONO # 0.8 10^3/uL (0.0-0.8); MONO % 19.0 % (2.0-8.0); NEUTROPHILS # 2.3 10^3/uL (1.5-8.5); NEUTROPHILS % 52.5 % (36.0-66.0); PLATELET COUNT, AUTOMATED 104 10^3/uL (150-450)
[2024-11-14 06:55] LABS: CALCIUM LEVEL 8.0 MG/DL (8.3-10.6); CARBON DIOXIDE LEVEL 26 MMOL/L (20-31); CHLORIDE LEVEL 107 MMOL/L (98-107); CREATININE FOR GFR 0.90 MG/DL (0.70-1.30); GLOMERULAR FILTRATION RATE > 90.0 (>49); POTASSIUM SERUM 4.4 MMOL/L (3.5-5.1); SODIUM LEVEL 143 MMOL/L (136-145)
[2024-11-14 08:16] VITALS: BP 112/66; TEMP 97.5; O2SAT 95
[2024-11-14 08:27] VITALS: BP 112/66
[2024-11-14] MEDS ORDERED: METO1TAB87 PO (11:38)
[2024-11-14] MEDS ORDERED: HYDR-4571 PO (11:38)
== END 2024-11-14 16:50 | disposition home health service (06) | DRG 312 ==
LOC: M ED 16:43 → M ED INP 21:27 → M PCU 11-07 13:55
PROVIDERS: ADMIT Student in an Organized Health Care Education/Training Program; ATTEND Internal Medicine Nephrology
PROC: B246ZZZ Ultrasonography of Right and Left Heart (ICD-10-PCS; principal; 2024-11-07)
DX: I95.1 Orthostatic hypotension (principal); C18.9 Malignant neoplasm of colon, unspecified; I48.20 Chronic atrial fibrillation, unspecified; I48.92 Unspecified atrial flutter; D61.818 Other pancytopenia; I10 Essential (primary) hypertension; E11.42 Type 2 diabetes mellitus with diabetic polyneuropathy; F32.A Depression, unspecified; Z90.49 Acquired absence of other specified parts of digestive tract; E66.01 Morbid (severe) obesity due to excess calories; R60.0 Localized edema; R53.1 Weakness; E83.42 Hypomagnesemia; K74.60 Unspecified cirrhosis of liver; G47.33 Obstructive sleep apnea (adult) (pediatric); E78.5 Hyperlipidemia, unspecified; E88.09 Other disorders of plasma-protein metabolism, not elsewhere classified; E11.319 Type 2 diabetes mellitus with unspecified diabetic retinopathy without macular edema; F32.9 Major depressive disorder, single episode, unspecified; R50.81 Fever presenting with conditions classified elsewhere; F41.9 Anxiety disorder, unspecified; N40.0 Benign prostatic hyperplasia without lower urinary tract symptoms; M10.9 Gout, unspecified; M41.9 Scoliosis, unspecified; Z98.41 Cataract extraction status, right eye; Z98.42 Cataract extraction status, left eye; Z95.0 Presence of cardiac pacemaker; Z79.84 Long term (current) use of oral hypoglycemic drugs; Z79.899 Other long term (current) drug therapy; Z88.0 Allergy status to penicillin; Z88.2 Allergy status to sulfonamides; Z68.36 Body mass index [BMI] 36.0-36.9, adult

== ENCOUNTER → 2024-12-09 | Outpatient (CLI) | payer MEDICARE, OTHER ==
[~2024-12-09] MED LIST changes: +DOXY-440 PO; +HYDR-4571 PO; +MAGN400T2 PO; +METO1TAB87 PO; +METO50TA7 PO
== END ==
LOC: M PLARAD 15:15
PROVIDERS: ATTEND Internal Medicine Medical Oncology
DX: C18.9 Malignant neoplasm of colon, unspecified (principal)
CPT/HCPCS: 78815; A9552

== ENCOUNTER → 2024-12-17 | Outpatient (CLI) | payer MEDICARE, OTHER | LOC: M ONCM 14:13 | PROVIDERS: ATTEND Dietitian, Registered | DX: C18.9 Malignant neoplasm of colon, unspecified (principal); C78.7 Secondary malignant neoplasm of liver and intrahepatic bile duct; Z68.36 Body mass index [BMI] 36.0-36.9, adult; Z71.3 Dietary counseling and surveillance ==

== ENCOUNTER → 2024-12-24 | Outpatient (CLI) | payer MEDICARE, OTHER ==
[~2024-12-24] VITALS: Ht 185.4 cm; Wt 124.0 kg
[~2024-12-24] MED LIST changes: +LIDOCAINE 1% MDV 20 ML VIAL SC SCH; +MIDAZOLAM INJ 2 MG/2 ML VIAL IV PRN; +NS (Normal Saline) 0.9% 1,000 ML IV SCH; +ONDA-84 PO; +ceFAZolin SODIUM 2 GM in DEXTROSE 5% (D5W) ADV/MINI-BAG 50 ML IV ONE
[2024-12-24 10:43] VITALS: TEMP 96.8
[2024-12-24] MEDS: NS (Normal Saline) 0.9% 1,000 ML IV SCH (11:05)
[2024-12-24] MEDS: ceFAZolin SOD 3 GM in DEXTROSE 5% (D5W) MINI-BAG PLU 1... IV ONE (11:05)
[2024-12-24] MEDS: MIDAZOLAM INJ 2 MG/2 ML VIAL IV PRN (11:13)
[2024-12-24] MEDS: LIDOCAINE 1% MDV 20 ML VIAL SC SCH (11:20)
[2024-12-24 12:15] VITALS: BP 149/68; O2SAT 96
== END ==
LOC: M IRPRO 10:13
PROVIDERS: ATTEND Internal Medicine Medical Oncology
DX: C18.9 Malignant neoplasm of colon, unspecified (principal); C78.7 Secondary malignant neoplasm of liver and intrahepatic bile duct
CPT/HCPCS: 36561; 99152; J0688; J1642; J2250; J3010

== ENCOUNTER → 2025-01-14 | Outpatient (CLI) | payer MEDICARE, OTHER ==
[~2025-01-14] MED LIST changes: -LIDOCAINE 1% MDV 20 ML VIAL SC SCH; +LOPE1CAP5 PO; -MIDAZOLAM INJ 2 MG/2 ML VIAL IV PRN; -NS (Normal Saline) 0.9% 1,000 ML IV SCH; -ceFAZolin SODIUM 2 GM in DEXTROSE 5% (D5W) ADV/MINI-BAG 50 ML IV ONE
== END ==
LOC: M ONCM 13:00
PROVIDERS: ATTEND Dietitian, Registered
DX: C18.9 Malignant neoplasm of colon, unspecified (principal); C78.7 Secondary malignant neoplasm of liver and intrahepatic bile duct; Z71.3 Dietary counseling and surveillance; Z68.32 Body mass index [BMI] 32.0-32.9, adult

== ENCOUNTER → 2025-03-10 | Outpatient (CLI) | payer MEDICARE, OTHER ==
[~2025-03-10] MED LIST changes: +ISOVUE-370 76% 100 ML VIAL As Ordered ONE
== END ==
LOC: M RAD 10:09
PROVIDERS: ATTEND Internal Medicine Medical Oncology
DX: C18.9 Malignant neoplasm of colon, unspecified (principal); I51.7 Cardiomegaly; R93.2 Abnormal findings on diagnostic imaging of liver and biliary tract; R16.1 Splenomegaly, not elsewhere classified; K76.6 Portal hypertension; K74.60 Unspecified cirrhosis of liver; E27.8 Other specified disorders of adrenal gland; J98.11 Atelectasis
CPT/HCPCS: 71260; 74177; Q9967

== ENCOUNTER → 2025-03-11 | Outpatient (CLI) | payer MEDICARE, OTHER ==
[~2025-03-11] MED LIST changes: -ISOVUE-370 76% 100 ML VIAL As Ordered ONE
== END ==
LOC: M ONCM 06:51
PROVIDERS: ATTEND Dietitian, Registered
DX: C18.9 Malignant neoplasm of colon, unspecified (principal); Z71.3 Dietary counseling and surveillance; Z68.36 Body mass index [BMI] 36.0-36.9, adult

== ENCOUNTER → 2025-04-15 | Outpatient (CLI) | payer MEDICARE, OTHER | LOC: M ONCM 07:56 | PROVIDERS: ATTEND Dietitian, Registered | DX: C18.9 Malignant neoplasm of colon, unspecified (principal); Z71.3 Dietary counseling and surveillance; Z68.36 Body mass index [BMI] 36.0-36.9, adult ==